=== PATIENT | female | born 1975 | race African-American/Black ===

== ENCOUNTER 2024-02-02 11:15 | Emergency (ER) | payer BC ==
[~2024-02-02] VITALS: Ht 170.2 cm; Wt 76.9 kg
[2024-02-02 11:35] VITALS: BP 109/56; PULSE 53; RESP 16; TEMP 97.3; O2SAT 99
[2024-02-02] MEDS: METOCLOPRAMIDE 10 MG/2 ML INJ VIAL IVP ONE (12:51)
[2024-02-02] MEDS: diphenhydrAMINE 50 MG/ML VIAL IVP ONE (12:51)
[2024-02-02] MEDS: NACL 0.9% 1,000 ML IV ONE (12:51)
[2024-02-02] MEDS: KETOROLAC 30 MG/ML VIAL IVP ONE (12:52)
== END 2024-02-02 12:24 | disposition left against medical advice (07) ==
LOC: MED 11:15
DX: R04.0 Epistaxis (principal); R51.9 Headache, unspecified
CPT/HCPCS: 99281; J1200; J1885; J2765